=== PATIENT | female | born 1985 ===

== ENCOUNTER 2019-12-24 06:04 | Inpatient (IN) ==
[~2019-12-24 06:04] MED LIST: Buffered Lidocaine 1% SYRIN 1 ml INTRADERM ONE; Sodium Citrate/Citric Acid LIQ 15 ML UDC PO ONE
[2019-12-24] MEDS: Lactated Ringers 1000 ml BAG 1,000 ML IV SCH ×2 (06:24→07:11)
[2019-12-24] MEDS ORDERED: ceFOXitin 2 GM IVPREMIX 2 GM/50 ML BAG ONE (06:46)
[2019-12-24] MEDS ORDERED: Oxytocin 10 UNITS/ML 1 ML VIAL ONE (07:48)
[2019-12-24] MEDS ORDERED: Morphine PF AMP (0.5MG/ML) 5 MG/10 ML AMP ONE (07:49)
[2019-12-24] MEDS ORDERED: Bupivacaine 0.5% SDV PF 30ML VIAL ONE (07:51)
[2019-12-24] MEDS ORDERED: diPHENhydraMINE IV 50 MG/ML 1 ml VIAL (BENADRYL) ONE (08:20)
[2019-12-24] MEDS ORDERED: Dexamethasone IV 4 MG/ML VIAL 1 ml VIAL ONE (08:32)
[2019-12-24] MEDS ORDERED: Naloxone 0.4 mg VIAL 0.4 mg/ml 1 ml VIAL IV PRN ×2 (08:51→08:53)
[2019-12-24] MEDS ORDERED: fentaNYL 100 mcg/2 ml 50 MCG/ML VIAL IV PRN (08:51)
[2019-12-24] MEDS ORDERED: HYDROcodone/ACETAMIN 5/325 mg TAB PO PRN (08:53)
[2019-12-24] MEDS ORDERED: DiMENhydriNATE IV 50 mg/ml 1 ml VIAL IV PUSH PRN (08:53)
[2019-12-24] MEDS ORDERED: Ondansetron 4 mg VIAL 2 MG/ML 2 ml VIAL IV PRN (08:53)
[2019-12-24] MEDS ORDERED: diPHENhydraMINE IV 50 MG/ML 1 ml VIAL (BENADRYL) IV PRN (08:53)
[2019-12-24] MEDS ORDERED: Dibucaine 1% OINT 28.35 GM TUBE PR PRN (09:31)
[2019-12-24] MEDS ORDERED: Witch Hazel PAD JAR TOPICAL PRN (09:31)
[2019-12-24] MEDS ORDERED: Glycerin ADULT 2.4 gm SUPP PR PRN (09:31)
[2019-12-24] MEDS ORDERED: Lactated Ringers 1000 ml BAG 1,000 ML IV SCH (10:00)
[2019-12-25 08:07] LABS: ABS Basophils 0.1 10^3/ul (0-0.2); ABS Eosinophils 0.1 10^3/ul (0-0.6); ABS Lymphocytes 1.6 10^3/ul (1.0-4.8); ABS Neutrophils 10.2 10^3/ul (1.5-7.7); Eosinophil % 0.6 %; Hematocrit 35 % (35-47); Hemoglobin 12.2 g/dL (12.0-16.0); Lymphocyte % 12.4 %; Mean Corpuscular HGB Conc 35 g/dL (31-36); Mean Corpuscular Hemoglobin 30 pg (27-31); Mean Corpuscular Volume 87 fL (80-97); Platelet Count 185 10^3/uL (150-450); Red Blood Count 4.03 10^6 /uL (3.70-4.87); Red Cell Distribution Width 13 % (10-15); White Blood Count 12.9 10^3/uL (3.5-10.8)
[2019-12-26 09:07] VITALS: BP 114/72
[2019-12-27] MEDS ORDERED: Scopolamine PATCH Remove NOTE PATCH OFF PRN (09:00)
== END 2019-12-26 12:17 | disposition home or self-care (01) | DRG 788 ==
LOC: MCHOB 06:04
PROVIDERS: ADMIT Obstetrics & Gynecology; ATTEND Obstetrics & Gynecology